=== PATIENT | male | born 1985 | race African-American/Black ===

== ENCOUNTER 2017-09-22 21:54 | Emergency (ER) | payer SELFPAY ==
[~2017-09-22] VITALS: Ht 175.3 cm; Wt 70.0 kg
[2017-09-22 22:01] VITALS: BP 137/85; PULSE 86; RESP 18; TEMP 99.1; O2SAT 97
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
[2017-09-22] MEDS ORDERED: IBUP1TAB7 PO (23:54)
[2017-09-22] MEDS ORDERED: TYLETAB34 PO (23:54)
== END 2017-09-23 00:36 | disposition home or self-care (01) ==
LOC: NEPD 21:54 → EDBD 21:54 → NEPD 09-23 00:36
DX: S82.134A Nondisplaced fracture of medial condyle of right tibia, initial encounter for closed fracture (principal); M25.461 Effusion, right knee; S00.511A Abrasion of lip, initial encounter; Y04.2XXA Assault by strike against or bumped into by another person, initial encounter
CPT/HCPCS: 73564; 99283; E0113; L1830